=== PATIENT | female | born 1990 | race Caucasian/White ===

== ENCOUNTER → 2024-03-02 | Outpatient (CLI) | payer SELFPAY ==
[2024-03-07 03:07] LABS: Chlamydia By Nucleic Acid AMP Negative (Negative); Gonococcus By Nucleic Acid AMP Negative (Negative)
== END | disposition home or self-care (01) ==
PROVIDERS: Referring Provider Obstetrics & Gynecology; Visit Provider Obstetrics & Gynecology
DX: O09.90 Supervision of high risk pregnancy, unspecified, unspecified trimester (principal); Z3A.00 Weeks of gestation of pregnancy not specified
CPT/HCPCS: 87086; 87491; 87591

== ENCOUNTER → 2024-03-31 | Outpatient (CLI) | payer SELFPAY ==
[2024-03-31 10:39] LABS: Absolute Lymphocyte Count 0.78 X10^3/uL (0.83-4.51); Absolute Neutrophil Count 5.2 X10^3/uL (2.0-7.7); Basophil# 0.01 X10^3/uL; Basophil% 0.2 % (0-1); Eosinophil# 0.02 X10^3/uL; Eosinophils% 0.3 % (0-5); Hematocrit 38.1 % (37-47); Hemoglobin 12.6 g/dL (12.0-15.0); Lymphocyte # 0.78 X10^3/ul (0.83-4.51); Lymphocyte % 12.3 % (19-41); Mean Corp Hgb Conc 33.1 g/dL (32-36); Mean Corpuscular Hgb 30.7 pg (27.0-32.0); Mean Corpuscular Volume 92.9 fL (81-99); Mean Platelet Vol. 9.4 fl (6.2-12.0); Monocyte# 0.33 X10^3/uL; Monocyte% 5.2 % (0-10); NRBC Flagged by Analyzer 0 % (0-5); Neutrophil # 5.15 X10^3/uL (2.7-7.7); Neutrophil % 81.5 % (47-70); Platelet Count 165 K/mm3 (150-450); RBC Distribution Width CV 12.6 % (11.6-14.6); RBC Distribution Width SD 42.8 fl (35.1-43.9); White Blood Count 6.3 K/mm3 (4.4-11.0)
[2024-03-31 11:56] LABS: HIV - WCH Non-Reactive (Nonreactive); Hepatitis B Surface Antigen Non-Reactive (Nonreactive); Hepatitis C Antibody Non-Reactive (Nonreactive); Rubella IgG Reactive (Nonreactive); Syphilis Antibodies Non-reactive
[2024-04-06 10:09] LABS: Antithrombin 3 Function 113 % (75-135)
== END | disposition home or self-care (01) ==
PROVIDERS: Obstetrics & Gynecology; Referring Provider Obstetrics & Gynecology; Visit Provider Obstetrics & Gynecology
DX: O09.90 Supervision of high risk pregnancy, unspecified, unspecified trimester (principal); Z3A.00 Weeks of gestation of pregnancy not specified; Z86.718 Personal history of other venous thrombosis and embolism; Z87.59 Personal history of other complications of pregnancy, childbirth and the puerperium
CPT/HCPCS: 36415; 81241; 85025; 85300; 86703; 86762; 86780; 86803; 86850; 86900; 86901; 87340

== ENCOUNTER → 2024-05-26 | Outpatient (CLI) | payer SELFPAY ==
--- NOTE | 2024-05-26 08:11 | US_ITS ---
STUDY: SECOND AND THIRD TRIMESTER OBSTETRICAL ULTRASOUND REASON FOR EXAM: Female, 33 years old anatomy LMP: January 02, 2024. TECHNIQUE: Transabdominal and Transvaginal TECHNICAL QUALITY: Adequate. PRIOR ULTRASOUND: None. FINDINGS: There is a single intrauterine fetus. The fetus is in a cephalic presentation. There is demonstrated cardiac activity with a heart rate of 155 bpm. There is a normal amniotic fluid volume. The largest amniotic fluid pocket measures 3.9 cm x 3 cm. The amniotic fluid index (DANNY) is within normal limits. The placenta is anterior in location and is not low lying. There are Grade 0 placental changes. The cervix measures 5.1 cm in length. The bilateral adnexal regions are normal. BIOMETRY: BPD: 5.1 cm: 21 weeks, 4 days: 81% HC: 19.2 cm: 21 weeks, 3 days: 74% AC: 16.4 cm: 21 weeks, 3 days: 69% FL: 3.4 cm: 20 weeks, 5 days: 44% CI: 80.5% FL/BPD: 66.8% FL/HC: 17.9% FL/AC: 20.9% HC/AC: 1.17 age by current US: 21 weeks, 0 days. DEO by current US: October 06, 2024. Estimated weight: 410 grams, +/- 61 grams, 73 %. Age by LMP: 20 weeks, 5 days. DEO by LMP: October 08, 2024. ANATOMY: Gender: Female Cranium: Normal lateral ventricles. Normal choroid plexus. Normal cerebellum. Normal cisterna magna. Normal face, nose and lips. Chest: Normal 4-chamber heart. Abdomen/Pelvis: Normal diaphragm. Normal stomach. Normal abdominal wall. Normal cord insertion. Normal 3 vessel cord. Normal kidneys. Normal bladder. Spine: Normal cervical spine. Normal thoracic spine. Normal lumbar spine. Normal sacrum. Extremities: Normal bilateral upper extremities. Normal bilateral lower extremities. Nuchal cord is seen. US/OB Anatomy Scan IMPRESSION: Single live intrauterine gestation with a mean gestational age of 21 weeks. Nuchal cord. Electronically Signed: Andrew Rivas MD at 14:34 EST ,
== END | disposition home or self-care (01) ==
PROVIDERS: Referring Provider Obstetrics & Gynecology; Visit Provider Obstetrics & Gynecology
DX: O69.81X0 Labor and delivery complicated by cord around neck, without compression, not applicable or unspecified (principal); Z3A.12 12 weeks gestation of pregnancy
CPT/HCPCS: 76805; 76817

== ENCOUNTER → 2024-09-20 | Outpatient (CLI) | payer SELFPAY | END | disposition home or self-care (01) | LOC: LABSPEC 11:05 | PROVIDERS: Referring Provider Obstetrics & Gynecology; Visit Provider Obstetrics & Gynecology | DX: O09.90 Supervision of high risk pregnancy, unspecified, unspecified trimester (principal); Z3A.00 Weeks of gestation of pregnancy not specified | CPT/HCPCS: 87081 ==

== ENCOUNTER → 2024-09-28 | Outpatient (CLI) | payer SELFPAY ==
--- NOTE | 2024-09-28 13:05 | US_ITS ---
PROCEDURE: OB LIMITED WITH BIOMETRICS 09/28/2024 REASON FOR EXAM: GROWTH TECHNIQUE: High resolution obstetric ultrasound performed using a 2D transducer. Standard views obtained, including biometry, anatomy survey, and Doppler studies. COMPARISON: Comparison is made with prior study dated May 26, 2024. FINDINGS Number: 1 Position: Vertex Placental Position: Anterior and not low-lying. Placental grade: 2 Placental Abnormalities: None DIMENSIONS: Biparietal Diameter: 9.46 cm: 38 weeks and 4 days: 78 percentile/ Head Circumference: 34.64 cm: 40 weeks and 1 day: 72nd percentile/ Abdominal Circumference: 35.67 cm: 39 weeks and 4 days: 90 percentile/ Femur Length: 7.35 cm: 37 weeks and 4 days: 31st percentile/ ESTIMATED WEIGHT: 3678 g plus/-552 g ESTIMATED WEIGHT PERCENTILE (24+ weeks): 77 ESTIMATED GESTATIONAL AGE: Baseline: 38 weeks and 4 days By Ultrasound: 38 weeks and 6 days ESTIMATED DATE OF DELIVERY: Baseline: October 08, 2024 By Ultrasound: October 06, 2024 BIOPHYSICAL ASSESSMENT: Amniotic Fluid Volume: 6.2 cm Amniotic Fluid Index: 14.5 (8-24 cm normal range) Cardiac Motion: 140 beats per minute (average) Trunk and Limb Motion: Present. MATERNAL ANATOMY: Adnexa: Neither maternal ovary is successfully identified. US/OB Limited With Biometrics IMPRESSION: Single live intrauterine gestation with a mean gestational age of 38 weeks and 6 days. The measurements obtained today fall within the normal expected range. Reading Location: [facility]-
== END | disposition home or self-care (01) ==
PROVIDERS: Referring Provider Obstetrics & Gynecology; Visit Provider Obstetrics & Gynecology
DX: O26.849 Uterine size-date discrepancy, unspecified trimester (principal); Z3A.00 Weeks of gestation of pregnancy not specified
CPT/HCPCS: 76816

== ENCOUNTER 2024-09-30 09:30 | Outpatient (CLI) | payer SELFPAY ==
[2024-09-30 09:47] VITALS: BP 128/79; PULSE 112; RESP 16; TEMP 36.4
[2024-09-30 09:48] VITALS: PULSE 109; O2SAT 97
[2024-09-30 09:50] VITALS: BMI 29.3
--- NOTE | 2024-10-01 10:44 | OB.TRI.PN_ITS ---
Progress Notes Date of Service: 09/30/24 Progress Note: Patient presents for triage evaluation secondary to uterine contractions at 38.6 weeks FHT: 145 Moderate variability reactive no decelerations category I tracing [place]: occasional Contractions Assessment and plan: no cervical change, Reactive NST, reassuring maternal and status patient discharged to home to follow-up plan for IOL on wednesday when 39.1. See problem list details for additional plan information. Charges/Coding Multi Select Codes Urinary/Genital Urinary/Genital CPT Codes: 20053-24 non-stress test Interp Assessment & Plan (1) Uterine contractions: (2) Uterine size-date discrepancy, third trimester: (3) Varicose veins of both lower extremities: COMMENT: continue baby asa (4) Supervision of high-risk : COMMENT: LEELA, , DEO 10/08/24, Kadeem Lacey Timothy, Meli Christal (5) : QUALIFIERS: Weeks of gestation: 38 weeks Qualified Code(s): Z3A.38 - 38 weeks gestation of COMMENT: GBS Negative, Carrier neg. .declines genetic testing. cocare with [facility] planned. (6) Family history of hearing loss at age younger than 7 years: COMMENT: son Kadeem with cochlear implants wants to discuss genetic testing. (7) History of recurrent miscarriages: COMMENT: 3 miscarriages, 15wk, 14wk & 8 wk (8) Hx of maternal deep vein thrombosis: COMMENT: post delivery 2nd , plan lovenox after delivery. ordered antithrombin III and factor V testing- negative. (9) MTHFR deficiency complicating : COMMENT: aspirin 81 mg
== END 2024-09-30 10:45 | disposition home or self-care (01) ==
LOC: WPOUT 09:32 → WP 09:33
PROVIDERS: Referring Provider Advanced Practice Midwife; Visit Provider Advanced Practice Midwife
DX: O47.1 False labor at or after 37 completed weeks of gestation (principal); Z3A.38 38 weeks gestation of pregnancy
CPT/HCPCS: 59025; 59050; 99221; G0378

== ENCOUNTER 2024-10-02 07:09 | Inpatient (IN) | payer SELFPAY ==
[2024-10-02] VITALS (45 sets, daily range): BP systolic 82–129; BP diastolic 45–91; PULSE 74–110; RESP 14–16; TEMP 36.3–37.3; O2SAT 89–100; BMI 29.1
--- NOTE | 2024-10-02 07:23 | HP.PCM.OB_ITS ---
HPI - General General Date of Admission: 10/02/24 Date of Service: 10/02/24 HPI Narrative LUKASZ JOHNSTON, is a 33 F 39.1 weeks who presents to unit for elective induction of labor. 2. plan for pitocin and AROM Maternal Data Information DEO Calculator Estimated Delivery Date Method Current WG Current Estimate 10/08/24 LMP (Certain) 39w 1d Final DEO: 10/08/24 Final DEO Source: US >20 weeks Gestational age: 39.1 PFSH PFSH Home Medications ?Medication ?Instructions ?Recorded ?Last Taken ?Type aspirin 81 mg tablet,delayed 81 mg PO QDAY 02/29/24 History release calcium carbonate (Calcium Antacid) 200 mg PO QDAY 09/29/24 History multivit no.40-iron 18 mg-folate 1 cap PO QDAY 4 09/29/24 History comb no.1 1 mg-dha 300 mg capsule omega-3 fatty acids-fish oil 300 cap PO DAILY Pregnanc y 02/29/24 09/29/24 History mg-500 mg capsule (Fish Oil) vitamin B complex-folic acid 0.4 1 tab PO QDAY 4 09/29/24 History mg tablet (B Complex 1 (with folic acid)) Allergy/AdvReac Type Severity Reaction Status Date / Time No Known Allergies Allergy Verified 10/02/24 07:28 Family History Aunt Cancer, Onset Age: 37 Paternal lymphoma Social History adopted: No household members: spouse and children number of children: 4 current occupational status: unemployed current occupation: [employer] current occupational exposures/hazards: No pets and animals: No history of recent travel: Yes (December) out of state: Yes out of country: No sexually active: Yes Smoking Status: Never smoker alcohol intake: never substance use type: does not use well-balanced diet: daily or most days caffeine: No eating out: rarely or never during the past year weight has: remained stable what type of physical activity do you participate in: none perla/sabianism: Alevism seatbelt use: sometimes do you feel safe at home: Yes additional social history: [employer] Employment History 8 Elective abortions Hx Para 4 Spontaneous abortions 3 Hx # Term Pregnancies Ectopic pregnancies Hx # Pregnancies Multiple births # of living children 4 Past Pregnancies Del. Date Name GA/Weeks Outcome Route Bth Weight Gen Labor Lgth Anesthesia Del Locatn Provider FOB Unknown miscarriage 05/27 15 spontaneous Unknown 09/26 Miscarriage 14 spontaneous Unknown Miscarriage 03/30 8 spontaneous 03/10/16 Marco 40 live - full term vacuum 8# 6oz Male epi dural [place] 11/07/17 Kadeem 40 live - full term 8#3oz Male none [place] Dr.Ullman Weberason 09/04/20 [place] 41 live - full term 7#14oz Male epi dural [place] Dr. Agata Siegel 09/12/22 Meli 42 live - full term 8#12oz Female ep [facility]ural [place] [facility] Delivery Date: 03/10/16 Last Updated by: Chula Breen due to failure to progress, vacuum assisted, long labor Delivery Date: 09/12/22 Last Updated by: Chula breenocin Visit Details Expected Delivery Route/Plan Labor Preferences- CB/BF classes: [] labor support person: [] labor intervention preferences: [] pain management options preferred: [] cut cord/dad catch: [] : [] PP control planned: [] discussed possible routes of delivery and associated risks: [] special requests: [] Plans Covid status: [] Flu vaccine: [] Tdap vaccine: [] Rhogam: [] LARC form signed: [] Problem list reviewed and updated with the most current plan of care details and appropriate orders placed. Relevant counseling for the gestational age provided. Continue routine care and follow up unless otherwise noted in visit notes/problem list details OB Flowsheet Initial Weight: Not Recorded Date -?-?-?-?-?-?-?-?-?-?-?-?- EGA Weight BP Urine Prot -?-?-?-?-?-?-?-?-?-?-?-?- Glucose FHR FuHt Pres Dilation -?-?-?-?-?-?-?-?-?-?-?-?- Effaced St Visit Note 03/02/24 -?-?-?-?-?-?-?-?-?-?-?-?- 8w 4d 149 lb 103/64 -?-?-?-?-?-?-?-?-?-?-?-?- 165 -?-?-?-?-?-?-?-?-?-?-?-?- JV- CRL is consi stent with the LMP. no cramping or spotting. deciding on carrier testing for hearing loss. see A/P. wants to do co care with tap out operator- will need to sign new co-care contract. 03/31/24 -?-?-?-?-?-?-?-?-?-?-?-?- 12w 5d 149 lb 4 oz 101/62 Nega tive -?-?-?-?-?-?-?-?-?-?-?-?- Negative 150 -?-?-?-?-?-?-?-?-?-?-?-?- SM- no vb crmapi ng discussed will need thrombophilia testing. 05/26/24 -?-?-?-?-?-?-?-?-?-?-?-?- 20w 5d 160 lb 2 oz 109/68 Nega tive -?-?-?-?-?-?-?-?-?-?-?-?- Negative 155 -?-?-?-?-?-?-?-?-?-?-?-?- JV- no lof, vagi nal bleeding, or dec fm. anatomy scan was done today but report is pending. She is doing co-care with Madeleine whitman. 07/27/24 -?-?-?-?-?-?-?-?-?-?-?-?- 29w 4d 171 lb 8 oz 104/69 Nega tive -?-?-?-?-?-?-?-?-?-?-?-?- Negative 145 28 -?-?-?-?-?-?-?-?-?-?-?-?- JV- no lof, vagi nal bleeding or dec fm. she wants to do her glucocla at her pcp's office. the drink, instructions, and orders were given. non-compliance discussed. she sees Donna Whitman next visit. 08/25/24 -?-?-?-?-?-?-?-?-?-?-?-?- 33w 5d 175 lb 8 oz 111/71 Nega tive -?-?-?-?-?-?-?-?-?-?-?-?- Negative 125 33 -?-?-?-?--?-?-?-?-?-?-?-?- KW- no vb/lof/ct x. good fm. passed glucose. planning hospital . planning on weekly visits at 36 weeks. discussed IOL at 41 weeks KW- no vb/lof/ctx. good fm. passed glucose. planning hospital . planning on weekly visits at 36 weeks. discussed IOL at 41 weeks. LARC today. found both her and are carriers of hearing loss 09/20/24 -?-?-?--?-?-?-?-?-?-?-?-?- 37w 3d 179 lb 6 oz 110/71 Nega tive -?-?-?-?-?-?-?-?-?-?-?-?- Negative 140 34 Cephalic 1 -?-?-?-?-?-?-?-?-?-?-?-?- 10 -3 SM- no vb lof good fm no regualr ctx discussed IOL considering 39-41 weeks. ordered growth US. 09/28/24 -?-?-?-?-?-?-?-?-?-?-?-?- 38w 4d 182 lb 6 oz 102/64 -?-?--?-?-?-?-?-?-?-?-?-?- 140 36.5 Cephalic 3 -?-?-?-?-?-?-?-?-?-?-?-?- 60 -2 kw-work in for jv kw-work in for jv. US review ed. would like membrane sweep for next week. NST FHR Rate Baby A Baseline: 140 Variability:: Moderate Accelerations:: 15 x 15 Decelerations:: None NST Reactive:: Yes FHR Category:: Category I Uterine Activity:: irregular ROS Constitutional Constitutional: Denies change in weight, fatigue, fever(s), headache(s), poor appetite or weakness Eyes Eyes: Denies blurry vision, change in vision, floaters, seeing flashes or spots in vision ENT HEENT: Denies dizziness, headache(s), loss taste/smell or sore throat Cardiovascular Cardiovascular: Denies chest pain, dizziness, dyspnea, irregular heart rhythm, lightheadedness, palpitations or rapid heart rate Respiratory/Chest Respiratory/Chest: Denies change in mental status, chest tightness, cough, dyspnea or breast pain Gastrointestinal Gastrointestinal: Denies anorexia, chewing difficulty, constipation, diarrhea or weight changes Genitourinary Genitourinary: Denies difficulty urinating, dysuria, flank pain, genital pain, urinary frequency or urinary urgency Musculoskeletal Musculoskeletal: Denies back pain, difficulty walking, extremity pain, joint pain, muscle cramps or muscle weakness Integumentary Integumentary: Denies lesions or unusual bruising Neurologic Neurologic: Denies abnormal movements, abnormal speech, dizziness, numbness, seizure-like activity, syncope or weakness Psychiatric Psychiatric: Denies behavioral changes, change in appetite, confusion, depression, homicidal ideation, suicidal ideation or suicidal thoughts Endocrine Endocrinology: Denies excessive sweating, polydipsia or polyuria Hematologic/Lymphatic Hematologic/Lymphatic: Denies anemia Allergic/Immunologic Allergic/Immunologic: Denies itchy eyes, lip swelling, throat swelling, tongue swelling or wheezing Vital Signs Vital Signs Vital Signs: 10/02/24 07:20 10/02/24 07:21 10/02/24 07:21 Temperature 98.2 F Pulse Rate 105 H Blood Pressure 115/91 H BP Systolic 115 BP Diastolic 91 Physical Exam Const alert, oriented x3 and no apparent distress General Appearance: cooperative Orientation / Consciousness: awake HEENT normocephalic Neck full ROM Lymph Lymphatic: no lymphadenopathy noted Chest inspection of chest normal Resp normal respiratory effort and normal air movement Effort and Inspection: able to speak in complete sentences and symmetric chest movement GI soft to palpation and non-tender Inspection: gravid Palpation: soft; Negative for tender external exam normal Manual OB Exam: dilated 3, effaced 60 and station -2 Back/Spine normal to inspection Extremity normal to inspection and full ROM Skin no rashes or lesions noted Psych mental status grossly normal Appearance: grossly normal Speech: normal speech Labs Labs Labs: Blood Type O POSITIVE Antibody Screen NEGATIVE Hct 38.1 % (37-47) Hgb 12.6 g/dL (12.0-15.0) Obstetrics Ultrasound Syphilis Total Ab Non-reactive Rubella IgG Antibody Reactive (Nonreactive) Hep Bs Antigen Non-Reactive (Nonreactive) Hepatitis C Antibody Non-Reactive (Nonreactive) Chlamydia DNA (RASHEL) Negative (Negative) N.gonorrhoeae DNA (RASHEL) Negative (Negative) HIV 1&2 Antibody Non-Reactive (Nonreactive) Assessment & Plan (1) Encounter for induction of labor: PLAN: Patient presents IOL, plan management for with pitocin/AROM. Pain management: plans epidural. GBS negative. Management of any complications: see list I have [facility] and made any clinically relevant updates. Dr Porter aware of assessment, plan and admission. agrees with above. (2) Uterine contractions: (3) Uterine size-date discrepancy, third trimester: (4) Varicose veins of both lower extremities: COMMENT: continue baby asa (5) Supervision of high-risk : COMMENT: PRR, , DEO 10/08/24, PC Kadeem Lara Timothy, Meli Christal (6) : QUALIFIERS: Weeks of gestation: 38 weeks Qualified Code(s): Z3A.38 - 38 weeks gestation of COMMENT: GBS Negative, Carrier neg. .declines genetic testing. cocare with [facility], hospital planned. (7) Family history of hearing loss at age younger than 7 years: COMMENT: son Kadeem with cochlear implants wants to discuss genetic testing. (8) History of recurrent miscarriages: COMMENT: 3 miscarriages, 15wk, 14wk & 8 wk (9) Hx of maternal deep vein thrombosis: COMMENT: post delivery 2nd , plan lovenox after delivery. ordered antithrombin III and factor V testing- negative. (10) MTHFR deficiency complicating : COMMENT: aspirin 81 mg Charges/Coding Multi Select Codes Urinary/Genital Urinary/Genital CPT Codes: No Charge
[2024-10-02] MEDS: Lactated Ringers 1,000 ML 50 ML IV (07:45)
[2024-10-02] MEDS: Oxytocin 15 Units/NS 250ml 15 UNITS/250 ML IV.SOLN 2 UNITS IV (07:50)
[2024-10-02 07:57] LABS: Absolute Lymphocyte Count 1.21 X10^3/uL (0.83-4.51); Absolute Neutrophil Count 5.7 X10^3/uL (2.0-7.7); Basophil# 0.02 X10^3/uL; Basophil% 0.3 % (0-1); Eosinophil# 0.02 X10^3/uL; Eosinophils% 0.3 % (0-5); Hematocrit 32.5 % (37-47); Hemoglobin 11.4 g/dL (12.0-15.0); Lymphocyte # 1.21 X10^3/ul (0.83-4.51); Lymphocyte % 16.3 % (19-41); Mean Corp Hgb Conc 35.1 g/dL (32-36); Mean Corpuscular Hgb 32.5 pg (27.0-32.0); Mean Corpuscular Volume 92.6 fL (81-99); Mean Platelet Vol. 9.8 fl (6.2-12.0); Monocyte% 5.4 % (0-10); NRBC Flagged by Analyzer 0 % (0-5); Neutrophil # 5.73 X10^3/uL (2.7-7.7); Neutrophil % 76.9 % (47-70); Platelet Count 156 K/mm3 (150-450); RBC Distribution Width CV 13.2 % (11.6-14.6); RBC Distribution Width SD 44.2 fl (35.1-43.9); Red Blood Count 3.51 M/mm3 (4.2-5.4); White Blood Count 7.4 K/mm3 (4.4-11.0)
[2024-10-02 08:57] LABS: Syphilis Antibodies Nonreactive (Nonreactive)
[2024-10-02] MEDS: fentaNYL-bupivacaine (epidural) 100 ML BAG EPIDURAL ×3 (11:19→20:43)
[2024-10-02] MEDS: Lactated Ringers 1,000 ML 200 ML IV ×3 (11:45→20:09)
--- NOTE | 2024-10-02 12:16 | PN_ITS ---
Progress Note comfortable with epidural current tracing: FHT: 130 Moderate variability reactive no decelerations category I tracing [place]: 2-3 minute Contractions Membranes:AROM clear- IUPC placed SVE: 4/80/-2 A/P: Continue with position changes Titrate pitocin per protocol Epidural per anesthesia GBS neg Anticipate Dr Porter aware of above assessment and agrees with plan of care Assessment & Plan Assessment/Plan (1) Encounter for induction of labor: (2) Uterine contractions: (3) Uterine size-date discrepancy, third trimester: (4) Varicose veins of both lower extremities: (5) Supervision of high-risk : (6) : QUALIFIERS: Weeks of gestation: 38 weeks Qualified Code(s): Z3A.38 - 38 weeks gestation of (7) Family history of hearing loss at age younger than 7 years: (8) History of recurrent miscarriages: (9) Hx of maternal deep vein thrombosis: (10) MTHFR deficiency complicating : Multi Select Codes Urinary/Genital Urinary/Genital CPT Codes: No Charge
--- NOTE | 2024-10-02 16:12 | PCM.PN.BLA ---
Progress Note comfortable with epidural current tracing: FHT: 130 Moderate variability reactive no decelerations category I tracing [place]: 2-4 Contractions Membranes:remains clear SVE:4.5/80/-2 A/P: Continue with position changes Titrate pitocin per protocol Epidural per anesthesia GBS neg Anticipate Dr Porter aware of above assessment and agrees with plan of care Assessment & Plan Assessment/Plan (1) Encounter for induction of labor: (2) Uterine contractions: (3) Uterine size-date discrepancy, third trimester: (4) Varicose veins of both lower extremities: (5) Supervision of high-risk : (6) : QUALIFIERS: Weeks of gestation: 38 weeks Qualified Code(s): Z3A.38 - 38 weeks gestation of (7) Family history of hearing loss at age younger than 7 years: (8) History of recurrent miscarriages: (9) Hx of maternal deep vein thrombosis: (10) MTHFR deficiency complicating : Multi Select Codes Urinary/Genital Urinary/Genital CPT Codes: No Charge
--- NOTE | 2024-10-02 21:46 | PN_ITS ---
Progress Note comfortable with epidural current tracing: FHT: 130 Moderate variability reactive no decelerations category I tracing [place]: 2-3 Contractions Membranes:remains clear SVE:6.5/80/-2 A/P: Continue with position changes Titrate pitocin per protocol Epidural per anesthesia GBS neg Anticipate Dr Porter aware of above assessment and agrees with plan of care Assessment & Plan Assessment/Plan (1) Encounter for induction of labor: (2) Uterine contractions: (3) Uterine size-date discrepancy, third trimester: (4) Varicose veins of both lower extremities: (5) Supervision of high-risk : (6) Family history of hearing loss at age younger than 7 years: (7) : QUALIFIERS: Weeks of gestation: 38 weeks Qualified Code(s): Z3A.38 - 38 weeks gestation of (8) History of recurrent miscarriages: (9) Hx of maternal deep vein thrombosis: (10) MTHFR deficiency complicating : Multi Select Codes Urinary/Genital Urinary/Genital CPT Codes: No Charge
[2024-10-03] VITALS (36 sets, daily range): BP systolic 75–159; BP diastolic 44–128; PULSE 69–137; RESP 14–18; TEMP 36.1–38.3; O2SAT 97–100
[2024-10-03] MEDS: Oxytocin 15 Units/NS 250ml 15 UNITS/250 ML IV.SOLN 24 UNITS IV (01:01)
--- NOTE | 2024-10-03 01:02 | PN_ITS ---
Progress Note comfortable with epidural current tracing: FHT: 120 Moderate variability reactive early decelerations, variable with cervical exam category I tracing [place]: 2-3 minutes Contractions Membranes:remain clear SVE:8/80/-1 pitocin at 24 mu A/P: Continue with position changes Titrate pitocin per protocol Epidural per anesthesia GBS neg Anticipate Dr Porter aware of above assessment and agrees with plan of care Assessment & Plan Assessment/Plan (1) Encounter for induction of labor: (2) Uterine contractions: (3) Uterine size-date discrepancy, third trimester: (4) Varicose veins of both lower extremities: (5) Supervision of high-risk : (6) : QUALIFIERS: Weeks of gestation: 38 weeks Qualified Code(s): Z3A.38 - 38 weeks gestation of (7) Family history of hearing loss at age younger than 7 years: (8) History of recurrent miscarriages: (9) Hx of maternal deep vein thrombosis: (10) MTHFR deficiency complicating : Multi Select Codes Urinary/Genital Urinary/Genital CPT Codes: No Charge
[2024-10-03] MEDS: fentaNYL-bupivacaine (epidural) 100 ML BAG EPIDURAL ×2 (01:06→05:18)
[2024-10-03] MEDS: Lactated Ringers 1,000 ML 200 ML IV (01:07)
--- NOTE | 2024-10-03 04:12 | PN_ITS ---
Progress Note comfortable with epidural current tracing: FHT: 140 Moderate variability reactive no decelerations category I tracing [place]: 3-4 Contractions Membranes:ruptured and remains clear SVE:/0 Likely OP presentation. reviewed tracing abnormalities since last note: phone collaboration with Dr Dailey at this time for update at 0300. Notified of patient SVE and likely OP. If not delivered by 0700 will plan to come attempt to turn to OA position A/P: Continue with position changes Plan break from pitocin for 30 minutes and restart at half Epidural per anesthesia GBS neg Anticipate Dr Porter aware of above assessment and agrees with plan of care Assessment & Plan Assessment/Plan (1) Encounter for induction of labor: (2) Uterine contractions: (3) Uterine size-date discrepancy, third trimester: (4) Varicose veins of both lower extremities: (5) Supervision of high-risk : (6) : QUALIFIERS: Weeks of gestation: 38 weeks Qualified Code(s): Z3A .38 - 38 weeks gestation of (7) Family history of hearing loss at age younger than 7 years: (8) History of recurrent miscarriages: (9) Hx of maternal deep vein thrombosis: (10) MTHFR deficiency complicating : Multi Select Codes Urinary/Genital Urinary/Genital CPT Codes: No Charge
[2024-10-03] MEDS: Acetaminophen 500 MG Tablet PO (06:01)
[2024-10-03] MEDS: Sodium Citrate/Citric Acid 30 ML UDC PO (07:10)
[2024-10-03] MEDS: Azithromycin 500 MG in 0.9% Normal Saline (250mL Bag) 250 ML 255 MG IV (07:24)
[2024-10-03] MEDS: Cefazolin 2 GM in 0.9% Normal Saline (100mL Bag) 100 ML IV (07:28)
--- NOTE | 2024-10-03 08:40 | PLAC_PTH ---
PATIENT: LUKASZ JOHNSTON LOC: [facility] U#:[id number] AGE/SX: 33/F ROOM: WP010 RE10/02/[address]: Shari Hartley CNM : 1990 BED: 1 DIS: 10/05/2024 SPEC #: [id number] RECD: 10/03/24 10:08 STATUS: DANG REHayley #: [id number] AMBER: 10/03/24 08:[address]: Shari Hartley DEPT: SURGICAL PATHOLOGY RECD BY: King Edwards ENTERED: 10/03/24 10:09 SP TYPE: PLACENTA OT DR: No Primary Care Phys Tissues: A - Placenta, NOS Procedures: Surgery Specimen Level V HEADER OPERATION: Primary section PRE-OP DIAGNOSIS: Infection TISSUE SUBMITTED: A- Placenta MICROSCOPIC DIAGNOSIS A. Placenta, section: * Mature third trimester placenta (544 grams, formalin fixed weight) with acute inflammation of the chorionic plate * Three vessel umbilical cord with acute funisitis * membranes with acute chorioamnionitis MICROSCOPIC DESCRIPTION Slides are reviewed. GROSS DESCRIPTION A. Received fresh in a container labeled with the patient's name, date of , and placenta is an 18.5 x 16.0 x 2.0 cm yeh and discoid placenta with a trimmed weight of 544 g. The eccentrically located white-barahona umbilical cord exhibits 3 vessels and is 48.5 cm in length by 1 cm in diameter. There are approximately 7 coils per 10 cm. The membranes are barahona-pink with a 100% marginal insertion point. The surface is blue-baker with prominent vasculature. The maternal surface exhibits red-barahona cotyledons that appear complete with a moderate amount of easily removed blood clot material. Serial sections reveal red-barahona, spongy cut surfaces. Adjuster sections:A1. Umbilical cord and membrane rollA2. Full-thickness sectionA3. Full-thickness section [facility] 10-03-2024 CPT:44181
--- NOTE | 2024-10-03 08:44 | EX.PCM.OBRPT ---
Assessment & Plan (1) hemorrhage: COMMENT: additional antibiotics given due to one elevated temp and larger EBL. (2) Cervical laceration: (3) Acute postoperative anemia due to greater than expected blood loss: COMMENT: unit of blood given due to hypotension. (4) Hx of maternal deep vein thrombosis: COMMENT: post delivery 2nd , plan lovenox after delivery. ordered antithrombin III and factor V testing- negative. (5) : QUALIFIERS: Weeks of gestation: 38 weeks Qualified Code(s): Z3A.38 - 38 weeks gestation of COMMENT: GBS Negative, Carrier neg. .declines genetic testing. cocare with Madeleine bernal, hospital planned. (6) Supervision of high-risk : COMMENT: LEELA, , DEO 10/08/24, Kadeem Lacey Timothy, Karlene Christal (7) Varicose veins of both lower extremities: COMMENT: continue baby asa Maternal Data Information DEO Calculator Estimated Delivery Date Method Current WG Current Estimate 10/08/24 LMP (Certain) 39w 3d Final DEO Source: LMP Gestational age: 39 Operative Report (OB) Details Procedure Type: low transverse Date of Procedure: 10/03/24 Procedure Start Time: 07:28 Procedure Stop Time: 08:30 Pre-Operative Diagnosis: Failure to Progress and Nonreassuring Status Post-Operative Diagnosis: Same as Pre-operative diagnosis (plus hemorrhage due to blood loss, suspected chorioamnionitis) Classification: SANDI Type of Anesthesia: Epidural Special Medications: none Antibiotic Given: Ancef 2 grams IV x1 and Zithromax 500 mg/5 mL X1 Drain: Pierson to straight drain Estimated Blood Loss: 2200 Fluids Replaced: crystalloid Findings Description of surgery: Patient was noted to be 8 cm despite pitocin at 24 mU with adequate contractions, and then a pitocin wash out was done, restarted, and then the patient developed recurrent late decelerations. the head was in the OP position which was resolved and rotated manually under ultrasound guidance at the bedside however was noted to be again OP at the time of delivery. due to AOD and nonreassuring FHT the decision was made to proceed with primary . The patient was placed in the dorsal supine position with leftward tilt. Patient was prepped and draped in the normal sterile fashion. Pfannenstiel skin incision was made with the scalpel and carried through to the underlying layer of fascia with the scalpel. Fascia was nicked in the midline and the incision extended laterally. The rectus bellies were dissected off superiorly and inferiorly with out complication both sharply and bluntly. The peritoneum was entered digitally. The incision was stretched and a low transverse uterine incision was made with the scalpel. There was an odor noted upon time of incision and deliveyr of the . The 's head was deeply impacted in the pelvis but it was elevated up out and delivered atraumatically followed by the anterior and posterior shoulders without complication the rest of the delivered. The cord was clamped and cut and the infant was handed off to awaiting nurse. The placenta was delivered spontaneously immediately following and was noted to be intact and have a three-vessel cord. The uterus was exteriorized cleared of all clots and debris, and the incision was noted to have a long cervical extension into the left side and through the left uterine vessels. THe tissue was noted to be swollen and of poor quality. This was closed using #1 Monocryl, and then the area checked and another opening noted lower which was oversewn with 3-0 monocryl. good visualization of the bladder was noted, and no hematomas were noted to form in the area. an o leary stitch was placed over the left side of the uterine artery to aid in hemostasis. hemoblast placed ov er the area and incision which was noted to be hemoastatic. the back of the uterus checked and left broad ligament checked for integrity and noted to be WNL. The ovaries and fallopian tubes were noted to be within normal limits. The uterus was returned to the maternal abdomen and gutters were cleared of all clots and debris. The peritoneum was closed with 3-0 Monocryl in a running fashion. Gloves were changed prior to fascial closure. Fascia was closed with 0 PDS in a running fashion. Subcutaneous tissue was copiously irrigated and the skin was closed with 3-0 Monocryl in a subcuticular fashion. Mepilex dressing was applied without complication. Patient was taken to recovery in stable condition. It was discussed with the patient that based on the clinical information obtained during this encounter, combined with her history, at this time I would recommend vaginal or cesareans for future deliveries if further pregnancies are desired but i recommend waiting 18-24 months prior to next conception. Surgical findings: impacted head OP with swelling and odor noted at time of delivery. extended cervical laceration on the left side through uterine vessels. Presentation: Vertex Amniotic Membrane Rupture Type: Artificial Amniotic Fluid Description: Clear Placental Delivery Description: Spontaneous Specimen collected: Yes Description of specimen(s) removed: placenta sent to pathology due to odor Cord Vessel Description: 3 Vessels Delayed Cord Clamping: Yes Mission Manager credit risk specialist: Yes Body Work Auto Trimmer: Fabian Roblero Tasks completed by certified surgical tech/first assistant: Opening & closing, Retracting and Other (assisting in delivery of the infant) Additional case management assistant?: No Complications Complications: No Admit VTE Documentation VTE Present on Admission: No VTE Mechan Device Prophylaxis: SCD's Procedures Urinary/Genital [id number]: [id number] Delivery [facility]
[2024-10-03] MEDS: Oxytocin 15 Units/NS 250ml 15 UNITS/250 ML IV.SOLN 83 UNITS IV (09:00)
[2024-10-03] MEDS: LACTATED RINGERS 500 ML 999 ML IV ×2 (09:05→11:53)
[2024-10-03] MEDS: Ketorolac 30 MG/ML Syringe IV ×3 (09:32→21:50)
[2024-10-03] MEDS: Lactated Ringers 1,000 ML 100 ML IV (09:42)
[2024-10-03 12:01] LABS: Absolute Lymphocyte Count 0.42 X10^3/uL (0.83-4.51); Absolute Neutrophil Count 18.1 X10^3/uL (2.0-7.7); Basophil# 0.04 X10^3/uL; Basophil% 0.2 % (0-1); Eosinophil# 0.06 X10^3/uL; Eosinophils% 0.3 % (0-5); Hematocrit 25.2 % (37-47); Hemoglobin 8.7 g/dL (12.0-15.0); Lymphocyte # 0.42 X10^3/ul (0.83-4.51); Lymphocyte % 2.1 % (19-41); Mean Corp Hgb Conc 34.5 g/dL (32-36); Mean Corpuscular Hgb 31.4 pg (27.0-32.0); Mean Platelet Vol. 9.8 fl (6.2-12.0); Monocyte# 1.13 X10^3/uL; Monocyte% 5.7 % (0-10); NRBC Flagged by Analyzer 0 % (0-5); Neutrophil # 18.14 X10^3/uL (2.7-7.7); Neutrophil % 91.3 % (47-70); POSITIVE DIFFERENTIAL YES; POSITIVE MORPHOLOGY YES; Platelet Count 162 K/mm3 (150-450); RBC Distribution Width CV 13.4 % (11.6-14.6); RBC Distribution Width SD 44.1 fl (35.1-43.9); Red Blood Count 2.77 M/mm3 (4.2-5.4); White Blood Count 19.9 K/mm3 (4.4-11.0)
[2024-10-03 12:06] LABS: Differential Indicated SCAN CRITERIA MET
[2024-10-03] MEDS: Acetaminophen 500 MG Tablet 1000 MG PO ×2 (12:26→18:23)
[2024-10-03 12:48] LABS: Fibrinogen 371 mg/dl (203-444)
[2024-10-03 12:55] LABS: Differential Comment SCANNED
[2024-10-03] MEDS: Cefazolin 1 GM/50 ML BAG IV (15:05)
[2024-10-03] MEDS: Enoxaparin 40 MG/0.4 ML Syringe SC (20:34)
[2024-10-03] MEDS: 0.9% Saline Lock 10 ML Syringe IV (20:37)
[2024-10-04] VITALS (11 sets, daily range): BP systolic 94–114; BP diastolic 50–64; PULSE 80–100; RESP 14–20; TEMP 36.1–36.7; O2SAT 98–100
[2024-10-04] MEDS: Lactated Ringers 1,000 ML 999 ML IV (00:02)
--- NOTE | 2024-10-04 00:03 | NURSING ---
This RN in patient room to obtain nightly vitals, BPs 75/48, 80/44, and 83/48. Dr. Zamora called immediately with results. Per MD, draw STAT CBC and start a 1 L LR bolus. Luba Anguiano RN
[2024-10-04 00:11] LABS: Absolute Lymphocyte Count 0.79 X10^3/uL (0.83-4.51); Absolute Neutrophil Count 13.5 X10^3/uL (2.0-7.7); Basophil# 0.02 X10^3/uL; Basophil% 0.1 % (0-1); Hematocrit 19.9 % (37-47); Hemoglobin 6.8 g/dL (12.0-15.0); Lymphocyte # 0.79 X10^3/ul (0.83-4.51); Lymphocyte % 5.2 % (19-41); Mean Corp Hgb Conc 34.2 g/dL (32-36); Mean Corpuscular Hgb 31.9 pg (27.0-32.0); Mean Corpuscular Volume 93.4 fL (81-99); Mean Platelet Vol. 9.5 fl (6.2-12.0); Monocyte# 0.83 X10^3/uL; Monocyte% 5.5 % (0-10); NRBC Flagged by Analyzer 0 % (0-5); Neutrophil # 13.53 X10^3/uL (2.7-7.7); Neutrophil % 88.9 % (47-70); POSITIVE MORPHOLOGY YES; Platelet Count 128 K/mm3 (150-450); RBC Distribution Width CV 13.7 % (11.6-14.6); RBC Distribution Width SD 46.8 fl (35.1-43.9); Red Blood Count 2.13 M/mm3 (4.2-5.4); White Blood Count 15.2 K/mm3 (4.4-11.0)
[2024-10-04 00:13] LABS: Differential Indicated SCAN CRITERIA MET
[2024-10-04 00:31] LABS: Differential Comment SCANNED
[2024-10-04] MEDS: Cefazolin 1 GM/50 ML BAG IV (00:52)
[2024-10-04] MEDS: Acetaminophen 500 MG Tablet 1000 MG PO ×4 (01:31→20:51)
[2024-10-04] MEDS: Ketorolac 30 MG/ML Syringe IV (04:01)
--- NOTE | 2024-10-04 08:28 | PN.OBGYN_ITS ---
Subjective Subjective Patient is laying in bed comfortably without complaints currently. Earlier in the am she was dizzy. Her hg was noted to be down 2 grams as to be expected and a blood transfusion was started. She states that she slept on an off during the night. Lochia is mild and pain is minimal. She denies fevers or chills currently. her baby still has an IV in due to chorioamnionitis. Objective Data Objective Data Vital Signs: Vital Signs Temp Pulse Resp BP Pulse Ox O2 Del Method 97 F L 82 16 94/50 L 98 Room Air 10/04/24 04:55 10/04/24 04:55 10/04/24 04:55 10/04/24 04:55 10/04/24 04:55 10/04/24 04:55 Oxygen Delivery Method Room Air Weight: 180 lb 8 oz Body Mass Index (BMI) 29.1 Intake & Output: Intake and Output for Last 24 Hours 10/02/24 10/03/24 10/04/24 23:59 23:59 23:59 Intake Total 2746.95 / 2746.95 4799.46 / 4799.46 1450 / 1450 Output Total 3000 / 3000 3200 / 3700 1300 / 1300 Balance -253.05 / -253.05 1599.46 / 1099.46 150 / 150 Lab / Micro Data 10/03/24 23:59 Labs: Laboratory Results - last 24 hr 10/02/24 07:40: Crossmatch See Detail 10/03/24 11:40: WBC 19.9 H, RBC 2.77 L, Hgb 8.7 L, Hct 25.2 L, MCV 91.0, MCH 31.4, MCHC 34.5, RDW Std Deviation 44.1 H, RDW Coeff of Paula 13.4, Plt Count 162, MPV 9.8, Immature Gran % (Auto) 0.400, Neut % (Auto) 91.3 H, Lymph % (Auto) 2.1 L, Stephen[place] % (Auto) 5.7, Eos % (Auto) 0.3, Baso % (Auto) 0.2, Absolute Neuts (auto) 18.1 H, Absolute Lymphs (auto) 0.42 L, Nucleated RBC % 0, Differential Comment SCANNED, Fibrinogen 371 10/03/24 23:59: WBC 15.2 H, RBC 2.13 L, Hgb 6.8 L, Hct 19.9 L, MCV 93.4, MCH 31.9, MCHC 34.2, RDW Std Deviation 46.8 H, RDW Coeff of Paual 13.7, Plt Count 128 L, MPV 9.5, Immature Gran % (Auto) 0.300, Neut % (Auto) 88.9 H, Lymph % (Auto) 5.2 L, Stephenson % (Auto) 5.5, Eos % (Auto) 0.0, Baso % (Auto) 0.1, Absolute Neuts (auto) 13.5 H, Absolute Lymphs (auto) 0.79 L, Nucleated RBC % 0, Differential Comment SCANNED ROS Constitutional Constitutional: Reports systems reviewed and no addt'l complaints, except as documented Cardiovascular Cardiovascular: Denies chest pain, dizziness, dyspnea or irregular heart rhythm Respiratory/Chest Respiratory/Chest: Denies cough, pain on inspiration or shortness of breath at rest Gastrointestinal Gastrointestinal: Denies abdominal pain, nausea or vomiting Genitourinary Genitourinary: Denies burning urination Musculoskeletal Musculoskeletal: Denies muscle cramps, muscle spasms or muscle weakness Neurologic Neurologic: Denies confusion, dizziness, headache(s) or lack of coordination Psychiatric Psychiatric: Denies anxiety, behavioral changes or depression Physical Exam HEENT normocephalic Resp normal respiratory effort and normal air movement GI soft to palpation, non-tender and non-distended Rectal Exam: other Other Details: Incision is clean, dry, and intact no CVA tenderness Extremity normal to inspection General Extremity: edema bilateral (trace ) Assessment & Plan (1) Acute postoperative anemia due to greater than expected blood loss: COMMENT: unit of blood given due to hypotension. (2) Cervical laceration: (3) hemorrhage: COMMENT: additional antibiotics given due to one elevated temp and larger EBL. (4) Status post section: COMMENT: - 10/03/24 PLAN: Plan s/p LTCS PPD # 1 1. routine post care 2. breast feeding- support given 3. rh positive 4. rubella immune 5. h/o DVT- on lovenox 6. anemia due to acute blood loss during surgery- status post blood transfusion. cbc ordered now for review. 7. plan dc to home tomorrow at earliest due to multiple complications.
[2024-10-04 08:44] LABS: Absolute Lymphocyte Count 0.81 X10^3/uL (0.83-4.51); Absolute Neutrophil Count 10.5 X10^3/uL (2.0-7.7); Basophil# 0.01 X10^3/uL; Basophil% 0.1 % (0-1); Eosinophil# 0.01 X10^3/uL; Eosinophils% 0.1 % (0-5); Hematocrit 22.3 % (37-47); Hemoglobin 7.6 g/dL (12.0-15.0); Lymphocyte # 0.81 X10^3/ul (0.83-4.51); Lymphocyte % 6.7 % (19-41); Mean Corp Hgb Conc 34.1 g/dL (32-36); Mean Corpuscular Hgb 31.5 pg (27.0-32.0); Mean Corpuscular Volume 92.5 fL (81-99); Mean Platelet Vol. 9.5 fl (6.2-12.0); Monocyte# 0.68 X10^3/uL; Monocyte% 5.6 % (0-10); NRBC Flagged by Analyzer 0 % (0-5); Neutrophil # 10.54 X10^3/uL (2.7-7.7); Neutrophil % 86.8 % (47-70); Platelet Count 116 K/mm3 (150-450); RBC Distribution Width CV 14.7 % (11.6-14.6); RBC Distribution Width SD 49.4 fl (35.1-43.9); Red Blood Count 2.41 M/mm3 (4.2-5.4); White Blood Count 12.1 K/mm3 (4.4-11.0)
[2024-10-04] MEDS: Senna/Docusate Sodium 1 Tablet PO (09:36)
[2024-10-04] MEDS: Naproxen 500 MG Tablet PO ×2 (09:36→17:49)
[2024-10-04] MEDS: 0.9% Saline Lock 10 ML Syringe IV (20:50)
[2024-10-04] MEDS: Enoxaparin 40 MG/0.4 ML Syringe SC (20:50)
[2024-10-05] VITALS (8 sets, daily range): BP systolic 93–118; BP diastolic 52–75; PULSE 76–105; RESP 14–18; TEMP 36.2–36.6; O2SAT 98–100
[2024-10-05] MEDS: Naproxen 500 MG Tablet PO ×2 (01:37→09:58)
[2024-10-05] MEDS: Acetaminophen 500 MG Tablet 1000 MG PO ×3 (01:37→13:54)
[2024-10-05 06:04] LABS: Hematocrit 21.2 % (37-47); Hemoglobin 7.2 g/dL (12.0-15.0); Mean Corpuscular Hgb 31.7 pg (27.0-32.0); Mean Corpuscular Volume 93.4 fL (81-99); Mean Platelet Vol. 9.9 fl (6.2-12.0); Platelet Count 125 K/mm3 (150-450); RBC Distribution Width SD 50.7 fl (35.1-43.9); Red Blood Count 2.27 M/mm3 (4.2-5.4); White Blood Count 10.7 K/mm3 (4.4-11.0)
--- NOTE | 2024-10-05 08:20 | PCM.PN.OB ---
Subjective Subjective Patient doing well without complaints. Tolerating PO. Ambulating and voiding without difficulty. feeding well. Denies chest pain, shortness of breath, calf pain/swelling, fevers, chills, lightheadedness. feel fatigued Objective Data Objective Data Vital Signs: Vital Signs Temp Pulse Resp BP Pulse Ox O2 Del Method 97.9 F 82 18 96/67 98 Room Air 10/05/24 01:40 10/05/24 01:40 10/05/24 01:40 10/05/24 01:40 10/05/24 01:40 10/05/24 01:40 Oxygen Delivery Method Room Air Weight: 180 lb 8 oz Body Mass Index (BMI) 29.1 Intake & Output: Intake and Output for Last 24 Hours 10/03/24 10/04/24 10/05/24 23:59 23:59 23:59 Intake Total 4799.46 / 4799.46 1450 / 1450 Output Total 3200 / 3700 1800 / 1800 Balance 1599.46 / 1099.46 -350 / -350 Lab / Micro Data 10/05/24 05:40 Labs: Laboratory Results - last 24 hr 10/04/24 08:25: WBC 12.1 H, RBC 2.41 L, Hgb 7.6 L, Hct 22.3 L, MCV 92.5, MCH 31.5, MCHC 34.1, RDW Std Deviation 49.4 H, RDW Coeff of Paula 14.7 H, Plt Count 116 L, MPV 9.5, Immature Gran % (Auto) 0.700, Neut % (Auto) 86.8 H, Lymph % (Auto) 6.7 L, [place] % (Auto) 5.6, Eos % (Auto) 0.1, Baso % (Auto) 0.1, Absolute Neuts (auto) 10.5 H, Absolute Lymphs (auto) 0.81 L, Nucleated RBC % 0 10/05/24 05:40: WBC 10.7, RBC 2.27 L, Hgb 7.2 L, Hct 21.2 L, MCV 93.4, MCH 31.7, MCHC 34.0, RDW Std Deviation 50.7 H, RDW Coeff of Paula 15.0 H, Plt Count 125 L, MPV 9.9 ROS Constitutional Constitutional: Reports systems reviewed and no addt'l complaints, except as documented Cardiovascular Cardiovascular: Reports systems reviewed and no addt'l complaints, except as documented Respiratory/Chest Respiratory/Chest: Reports systems reviewed and no addt'l complaints, except as documented Gastrointestinal Gastrointestinal: Reports systems reviewed and no addt'l complaints, except as documented Physical Exam Const alert, oriented x3 and no apparent distress HEENT Head and Scalp: atraumatic Resp normal respiratory effort GI soft to palpation and non-tender Inspection: incision intact, healing well and drainage (none) Bimanual Exam - Vag & Uterus: uterus non-tender Uterus Palpation: uterus fundus firm (below Umbilicus) Assessment & Plan (1) Status post section: COMMENT: - 10/03/24 (2) Acute postoperative anemia due to greater than expected blood loss: COMMENT: unit of blood given due to hypotension, Hg 7.2 and will be on lovenox post dleivery, still has fatigue, will give additional unit prior to dishcarge (3) Cervical laceration: (4) hemorrhage: COMMENT: additional antibiotics given due to one elevated temp and larger EBL. PLAN: Plan s/p LTCS PPD # 2 1. routine post care 2. breast feeding- support given 3. rh positive 4. rubella immune anemia- give additional unit due to going home on lovenox and feeling fatigued still. iron therapy upon dishcarge also. dc home after cbc post transfusion
[2024-10-05] MEDS: Senna/Docusate Sodium 1 Tablet PO (09:57)
[2024-10-05] MEDS: SimETHICONE 80 MG Chewable Tablet PO (11:49)
--- NOTE | 2024-10-05 12:58 | DCINST_ITS ---
Discharge Instructions Diet Discharge Diet: No restrictions DC O2, CPAP, BIPAP needs Home O2 Discharge instructions: No Dressing / Incision Discharge Activity: May Not Drive (for 2 weeks or while taking narcotic pain medications.), May Shower and May Take a Tub Bath (in 7 days) May shower in (days): 0 May resume sexual activity in: 4-6 weeks Weight Bearing Status: Full weight bearing Lifting Restrictions: 20 pounds Dressing / Incision Call your doctor if your incision/area has: Continuous Slow Oozing, Sudden Increased Bleeding, Increased Pain/ Swelling, Increased Redness and Foul Smelling Discharge Call your doctor if you observe: Fever of 101 or Higher and Using more than 1 pad per hour (for 2 hours) Suture Line Care: Avoid Pulling/Pushing and Avoid Pinching/Bending Cleanse incision/area with: Soap & Water and Keep Dressing Clean & Dry Follow Up Care Please Follow Up With: Nathaly Zamora MD When: Call [phone] to make an appointment for an incision check in 1-2 weeks. Test Results: Test results from this visit will be discussed in further detail at your follow- up appointment, if applicable. Discharge Plan Admission Admit Date/Time: 10/02/24 07:09 Attending Provider: Shari Hartley Primary Care Provider: Care PhysicianDeb Primary Discharge Orders/Prescriptions Prescriptions: New ferrous sulfate [Iron (ferrous sulfate)] 325 mg (65 mg iron) tablet 325 mg PO DAILY Qty: 30 1RF oxycodone-acetaminophen [Percocet] 5-325 mg tablet 1 tab PO Q4H PRN (Reason: pain) 7 Days Qty: 20 0RF naproxen 500 mg tablet 500 mg PO BID PRN PRN (Reason: Pain) Qty: 30 1RF enoxaparin [Lovenox] 40 mg/0.4 mL syringe 40 mg subcut DAILY 42 Days Qty: 16.8 1RF No Action vitamin B complex-folic acid [B Complex 1 (with folic acid)] 0.4 mg tablet 1 tab PO QDAY aspirin 81 mg tablet,delayed release (DR/EC) 81 mg PO QDAY calcium carbonate [Calcium Antacid] 200 mg calcium (500 mg) tablet,chewable 200 mg PO QDAY Fish Oil 300-500 mg capsule 1 cap PO DAILY multivit [id number] 1-dha 18 mg iron- 1 mg-300 mg capsule 1 cap PO QDAY Referrals / Follow Up: Care Physician,No Primary [Primary Care Provider] - Disposition Disposition (needs filled in before D/C Order can be placed): Home, Self Care
[2024-10-05 15:06] LABS: Absolute Lymphocyte Count 0.75 X10^3/uL (0.83-4.51); Absolute Neutrophil Count 9.7 X10^3/uL (2.0-7.7); Basophil# 0.01 X10^3/uL; Basophil% 0.1 % (0-1); Eosinophil# 0.03 X10^3/uL; Eosinophils% 0.3 % (0-5); Hemoglobin 8.4 g/dL (12.0-15.0); Lymphocyte # 0.75 X10^3/ul (0.83-4.51); Lymphocyte % 6.8 % (19-41); Mean Corp Hgb Conc 33.6 g/dL (32-36); Mean Corpuscular Hgb 31.3 pg (27.0-32.0); Mean Corpuscular Volume 93.3 fL (81-99); Mean Platelet Vol. 10.2 fl (6.2-12.0); Monocyte# 0.45 X10^3/uL; Monocyte% 4.1 % (0-10); NRBC Flagged by Analyzer 0 % (0-5); Neutrophil # 9.66 X10^3/uL (2.7-7.7); Neutrophil % 87.7 % (47-70); Platelet Count 130 K/mm3 (150-450); RBC Distribution Width CV 14.8 % (11.6-14.6); RBC Distribution Width SD 50.4 fl (35.1-43.9); Red Blood Count 2.68 M/mm3 (4.2-5.4)
--- NOTE | 2024-10-12 07:55 | PCM.DC.SUM ---
Providers Date of Admission: 10/02/24 Primary Care Physician: Deb Primary Care Phys Reason For Visit: PRIMARY C SECTION Diagnosis Discharge Diagnosis (1) Status post section: Status: Acute Code(s): Z98.891 - History of uterine scar from previous surgery (2) Acute postoperative anemia due to greater than expected blood loss: Status: Acute Code(s): D62 - Acute posthemorrhagic anemia (3) Cervical laceration: Status: Acute Code(s): S37.63XA - Laceration of uterus, initial encounter (4) hemorrhage: Status: Acute Code(s): O72.1 - Other immediate hemorrhage Plan s/p LTCS PPD # 2 1. routine post care 2. breast feeding- support given 3. rh positive 4. rubella immune anemia- give additional unit due to going home on lovenox and feeling fatigued still. iron therapy upon dishcarge also. dc home after cbc post transfusion Medications at Discharge Home Medications aspirin 81 mg tablet,delayed release 81 mg PO QDAY vericose veins 02/29/24 calcium carbonate (Calcium Antacid) 200 mg PO QDAY 02/29/24 multivit no.40-iron 18 mg-folate comb no.1 1 mg-dha 300 mg capsule 1 cap PO QDAY 02/29/24 omega-3 fatty acids-fish oil 300 mg-500 mg capsule (Fish Oil) 1 cap PO DAILY 02/29/24 vitamin B complex-folic acid 0.4 mg tablet (B Complex 1 (with folic acid)) 1 tab PO QDAY 02/29/24 enoxaparin 40 mg/0.4 mL subcutaneous syringe (Lovenox) 40 mg (0.4 mL) subcut DAILY 6 weeks #16.8 mL 10/05/24 ferrous sulfate 325 mg (65 mg iron) tablet (Iron (ferrous sulfate)) 325 mg PO DAILY #30 tabs 10/05/24 naproxen 500 mg tablet 500 mg PO BID PRN PRN Pain #30 tabs 10/05/24 oxycodone-acetaminophen 5 mg-325 mg tablet (Percocet) 1 tab PO Q4H PRN pain 7 days #20 tabs 10/05/24 Hospital Course Summary of Care Provided Hospital Course: patient presented for iol history of dvt and had an arrest of dilation at 7-8 cm, despite adequte time with pitocin, ROM, developed fever and cervical swelling. decision was made to proceed with LTCS. she had a cervical extension into the left side with excessive hemorrhage intraoperative blood loss, and required 2 units of blood transfusion but otherwise Postoperatively patient had a return of bowel and bladder function and was ambulating well, tolerating adequate p.o., and was stable for discharge to home. Discharge medications naproxen and Percocet. Follow-up in office in 2 weeks for incision check in 6 weeks for visit. Routine post section diet and activity instructions. Weight / BMI Weight Weight: 180 lb 8 oz Body Mass Index (BMI) 29.1 ABG / Lab / Microbiology Data 10/05/24 14:50 D/C Instructions Discharge Diet: No restrictions Discharge Activity: May Not Drive (for 2 weeks or while taking narcotic pain medications.), May Shower and May Take a Tub Bath (in 7 days) May shower in (days): 0 May resume sexual activity in: 4-6 weeks Weight Bearing Status: Full weight bearing Call your doctor if your incision/area has: Continuous Slow Oozing, Sudden Increased Bleeding, Increased Pain/ Swelling, Increased Redness and Foul Smelling Discharge Call your doctor if you observe: Fever of 101 or Higher and Using more than 1 pad per hour (for 2 hours) Suture Line Care: Avoid Pulling/Pushing and Avoid Pinching/Bending Cleanse incision/area with: Soap & Water and Keep Dressing Clean & Dry DC O2, CPAP, BIPAP Needs Home O2 Discharge instructions: No Please Follow Up With: Nathaly Zamora MD When: Call [phone] to make an appointment for an incision check in 1-2 weeks. Meaningful Use Info Meaningful Use Meaningful Use Diagnoses (Choose all that apply): None applicable Ischemic Stroke Statin Dosing Therapy Reference: STATIN DOSE THERAPY REFERENCE: * Patients > 75 years receive moderate or high dose statin therapy. * Patients 75 years or YOUNGER should receive HIGH intensity statin dose unless contraindicated. You will be required to document reason for non-treatment if statin daily dose does not meet guidelines. HIGH DOSE STATIN THERAPY DAILY Atorvastatin > than or = to 40 mg Rosuvastatin > than or = to 20 mg Amlodipine + Atorvastatin > than or = to 2.5/40 mg Ezetimibe + Simvastatin 10/80 mg Simvastatin 80mg Discharge Plan Admission Admit Date/Time: 10/02/24 07:09 Attending Provider: Shari Hartley Primary Care Provider: Care PhysicianDeb Primary Instructions Patient Instructions: After a Delivery (WP) Discharge Orders/Prescriptions Prescriptions: New ferrous sulfate [Iron (ferrous sulfate)] 325 mg (65 mg iron) tablet 325 mg PO DAILY Qty: 30 1RF oxycodone-acetaminophen [Percocet] 5-325 mg tablet 1 tab PO Q4H PRN (Reason: pain) 7 Days Qty: 20 0RF naproxen 500 mg tablet 500 mg PO BID PRN PRN (Reason: Pain) Qty: 30 1RF enoxaparin [Lovenox] 40 mg/0.4 mL syringe 40 mg subcut DAILY 42 Days Qty: 16.8 1RF No Action vitamin B complex-folic acid [B Complex 1 (with folic acid)] 0.4 mg tablet 1 tab PO QDAY aspirin 81 mg tablet,delayed release (DR/EC) 81 mg PO QDAY calcium carbonate [Calcium Antacid] 200 mg calcium (500 mg) tablet,chewable 200 mg PO QDAY Fish Oil 300-500 mg capsule 1 cap PO DAILY multivit 95-vlyz-lalusf 1-dha 18 mg iron- 1 mg-300 mg capsule 1 cap PO QDAY Referrals / Follow Up: Care Physician,Deb Primary [Primary Care Provider] - Disposition Disposition (needs filled in before D/C Order can be placed): Home, Self Care
[2024-10-13 12:22] LABS: Pathology Specimen OB SEE PATHOLOGY REPORT
== END 2024-10-05 15:40 | disposition home or self-care (01) | DRG 786 ==
PROVIDERS: Obstetrics & Gynecology; Admitting Provider Advanced Practice Midwife; Referring Provider Advanced Practice Midwife; Visit Provider Advanced Practice Midwife
DX: O26.843 Uterine size-date discrepancy, third trimester (principal); O41.1230 Chorioamnionitis, third trimester, not applicable or unspecified; E72.12 Methylenetetrahydrofolate reductase deficiency; D62 Acute posthemorrhagic anemia; O26.23 Pregnancy care for patient with recurrent pregnancy loss, third trimester; O72.1 Other immediate postpartum hemorrhage; O71.3 Obstetric laceration of cervix; O99.03 Anemia complicating the puerperium; O64.0XX0 Obstructed labor due to incomplete rotation of fetal head, not applicable or unspecified; O99.284 Endocrine, nutritional and metabolic diseases complicating childbirth; O76 Abnormality in fetal heart rate and rhythm complicating labor and delivery; Z37.0 Single live birth; Z3A.38 38 weeks gestation of pregnancy; O87.4 Varicose veins of lower extremity in the puerperium; O90.81 Anemia of the puerperium; Z79.82 Long term (current) use of aspirin; Z87.59 Personal history of other complications of pregnancy, childbirth and the puerperium; Z86.718 Personal history of other venous thrombosis and embolism
CPT/HCPCS: 59025; 59050; 76815; 85025; 85027; 85384; 86780; 86850; 86900; 86901; 88307; 99221; P9016; A4216; G0378; J2405

== ENCOUNTER → 2024-11-21 | Outpatient (CLI) | payer SELFPAY ==
[2024-11-21 16:06] LABS: Absolute Lymphocyte Count 2.19 X10^3/uL (0.83-4.51); Absolute Neutrophil Count 2.6 X10^3/uL (2.0-7.7); Basophil# 0.04 X10^3/uL; Basophil% 0.7 % (0-1); Eosinophil# 0.18 X10^3/uL; Eosinophils% 3.3 % (0-5); Hematocrit 36.3 % (37-47); Lymphocyte # 2.19 X10^3/ul (0.83-4.51); Lymphocyte % 40.1 % (19-41); Mean Corp Hgb Conc 33.1 g/dL (32-36); Mean Corpuscular Hgb 30.4 pg (27.0-32.0); Mean Corpuscular Volume 91.9 fL (81-99); Mean Platelet Vol. 9.7 fl (6.2-12.0); Monocyte% 7.3 % (0-10); NRBC Flagged by Analyzer 0 % (0-5); Neutrophil # 2.64 X10^3/uL (2.7-7.7); Neutrophil % 48.4 % (47-70); Platelet Count 223 K/mm3 (150-450); RBC Distribution Width CV 12.4 % (11.6-14.6); RBC Distribution Width SD 41.7 fl (35.1-43.9); Red Blood Count 3.95 M/mm3 (4.2-5.4); White Blood Count 5.5 K/mm3 (4.4-11.0)
== END | disposition home or self-care (01) ==
LOC: BWCLAB 14:40
PROVIDERS: Referring Provider Nurse Practitioner Women's Health; Visit Provider Nurse Practitioner Women's Health
DX: Z12.4 Encounter for screening for malignant neoplasm of cervix (principal); D64.9 Anemia, unspecified
CPT/HCPCS: 36415; 85025; 87624; 88175; G0145